=== PATIENT | female | born 1980 | race Caucasian/White ===

== ENCOUNTER 2017-07-11 10:22 | Observation (INO) | payer SELFPAY ==
[~2017-07-11] VITALS: Ht 165.1 cm; Wt 87.6 kg
[2017-07-11] VITALS (7 sets, daily range): BP systolic 100–121; BP diastolic 55–78
[~2017-07-11 10:22] MED LIST: FLAGYL500 MG OR; FLONASE NASAL50 MCG; FLUARIX QUADRIV1 INJ IM; NECON1 TA1 OR; ORTHO TRI-CY OR
[2017-07-11 11:13] LABS: HEMATOCRIT 42.7 % (37.0-47.0); HEMOGLOBIN 14.3 g/dl (12.0-16.0); IMMATURE GRANULOCYTES 0.5 % (0.0-1.0); MEAN CELL VOLUME 91.8 fL CALC (80.0-100.0); MEAN CORPUSCULAR HGB 30.8 pG CALC (26.0-32.0); MEAN CORPUSCULAR HGB CONC 33.5 g/L CALC (32.0-36.0); NEUT# 4.88 thou/uL (2.00-7.15); RED BLOOD COUNT 4.65 mill/uL (4.20-5.60); RED CELL DISTRI WIDTH 11.5 % (11.5-15.5)
[2017-07-11 11:18] LABS: URINE BILIRUBIN - DIPSTICK NEGATIVE (NEGATIVE); URINE BLOOD DIPSTICK NEGATIVE (NEGATIVE); URINE CLARITY CLEAR; URINE COLOR YELLOW; URINE GLUCOSE - DIPSTICK NEGATIVE (NEGATIVE); URINE KETONE NEGATIVE (NEGATIVE); URINE LEUK ESTERASE NEGATIVE (Negative); URINE NITRITE - DIPSTICK NEGATIVE (Negative); URINE PROTEIN - DIPSTICK NEGATIVE (NEG-TRACE); URINE UROBILINOGEN - DIPSTICK 0.2 E.U./dL (0.2)
[2017-07-11 11:25] LABS: ALBUMIN 4.7 g/dL (3.2-5.0); ALKALINE PHOSPHATASE 91 u/l (38-126); ANION GAP 15 (6-22 (CALC)); BILIRUBIN, TOTAL 1.1 mg/dL (0.0-1.4); BUN 11 mg/dL (7-17); BUN/CREATININE RATIO 11 (12-20 (CALC)); CARBON DIOXIDE 24 mmol/l (22-30); CHLORIDE 106 mmol/l (95-108); GFR > 60 ML/MIN (>=60 (CALC)); GFR FOR AFR.AMER. > 60 ML/MIN (>=60 (CALC)); GLUCOSE 87 mg/dL (65-105); POTASSIUM 3.9 mmol/l (3.5-5.1); SGOT/AST 31 u/l (14-36); SGPT/ALT 46 u/l (9-52); SODIUM 141 mmol/l (137-146); TOTAL PROTEIN 7.8 g/dL (6.3-8.2)
[2017-07-11] MEDS ORDERED: SPRINTEC 2828 DAY PO (13:46)
[2017-07-12 04:06] VITALS: BP 105/55
[2017-07-12 07:33] LABS: HEMATOCRIT 37.3 % (37.0-47.0); HEMOGLOBIN 12.5 g/dl (12.0-16.0); IMMATURE GRANULOCYTES 0.3 % (0.0-1.0); MEAN CELL VOLUME 92.1 fL CALC (80.0-100.0); MEAN CORPUSCULAR HGB 30.9 pG CALC (26.0-32.0); MEAN CORPUSCULAR HGB CONC 33.5 g/L CALC (32.0-36.0); NEUT# 7.11 thou/uL (2.00-7.15); RED BLOOD COUNT 4.05 mill/uL (4.20-5.60); RED CELL DISTRI WIDTH 11.4 % (11.5-15.5)
[2017-07-12 08:15] VITALS: BP 120/61
[2017-07-12] MEDS ORDERED: DOXYCYCL HYC100 MG PO (09:03)
[2017-07-12] MEDS ORDERED: LORTAB 7.5-3251 TAB PO (09:04)
== END 2017-07-12 10:48 | disposition home or self-care (01) | DRG 357 ==
LOC: ED 10:22 → ED-I 12:42 → ED 13:13 → MS2 13:14 → ED-I 13:56 → ED 13:56 → MS2 17:59
PROVIDERS: Emergency Medicine; ADMIT Obstetrics & Gynecology; ATTEND Obstetrics & Gynecology
PROC: 0WJJ4ZZ Inspection of Pelvic Cavity, Percutaneous Endoscopic Approach (ICD-10-PCS; principal; 2017-07-11)
DX: R10.32 Left lower quadrant pain (principal); K50.00 Crohn's disease of small intestine without complications; I86.2 Pelvic varices; N70.91 Salpingitis, unspecified
CPT/HCPCS: G0378; J2710

== ENCOUNTER 2017-09-25 09:20 | Inpatient (IN) | payer SELFPAY ==
[~2017-09-25] VITALS: Ht 165.1 cm; Wt 86.2 kg
[~2017-09-25 09:20] MED LIST changes: +DOXYCYCL HYC100 MG PO; +LORTAB 7.5-3251 TAB PO; +SPRINTEC 2828 DAY PO
[2017-09-30] VITALS (9 sets, daily range): BP systolic 107–129; BP diastolic 52–81
--- NOTE | 2017-09-30 12:40 | NUR ---
PT TO ROOM VIA STRETCHER ACCOMPANIED BY STAFF; PT ABLE TO TRANSFER SELF TO BED WITH MIN ASSIST; VS OBTAINED; PT A/O X3; PT STATUS POST VAGINAL HYSTERECTOMY; DRSG TO ABD X3 SURGICAL SITES CDI; PT STATES PAIN 2/10 AT THIS TIME, DOES NOT WANT PAIN MEDS; IVF INFUSING IN #20 RFA WITHOUT DIFFICULTY, NO REDNESS OR EDEMA AT SITE; REED DRAINING BLUE/GREEN DYE COLOR URINE TO BEDSIDE DRAIN; SCD IN PLACE; PT ORIENTED TO ROOM AND CALL SYSTEM; CALL [place] WITHIN REACH; WILL CONTINUE TO MONITOR.
--- NOTE | 2017-09-30 15:20 | NUR ---
PT RESTING WITH EYES CLOSED; AROUSED EASILY TO VERBAL STIMULI; ABD PAIN 2/10, DOES NOT WANT PAIN MED AT THIS TIME; DRSG TO ABD CDI; PT DOES NOT HAVE ANY VAGINAL BLEEDING; REED DRAINING BLUE/GREEN DYE COLOR URINE TO BEDSIDE DRAIN; TOLERATING ICE CHIP WELL; CALL [place] WITHIN REACH; WILL CONTINUE TO MONITOR.
[2017-09-30 16:32] LABS: HEMATOCRIT 36.7 % (37.0-47.0); HEMOGLOBIN 12.5 g/dl (12.0-16.0)
--- NOTE | 2017-09-30 17:23 | NUR ---
DR. RODRIGUEZ IN TO SEE PT;
--- NOTE | 2017-09-30 18:08 | NUR ---
REED REMOVED; EMPTIED 300CC OF CLEAR LIGHT BLUE/GREEN URINE; PT DENIES PAIN/DISCOMFORT; ENCOURAGE FOR PT TO CALL FOR ASSISTANCE OUT OF BED; CALL [place] WITHIN REACH; WILL CONTINUE TO MONITOR.
--- NOTE | 2017-09-30 18:50 | NUR ---
PT AMBULATORY IN HALLS WITH STAND BY ASSIST; TOLERATED WELL; CALL [place] WITHIN REACH; WILL CONTINUE TO MONITOR
--- NOTE | 2017-09-30 20:10 | NUR ---
PT RESTING IN SEMI FOWLERS POSITION LAUGHING WITH FAMILY MEMBERS AT BEDSIDE;A&O X3;PT VOICES NO COMPLAINTS OF PAIN AT THIS TIME;RESPIRATIONS EVEN AND UNLABORED ON RA;ASSESSMENT COMPLETED;HYPO ACTIVE BOWEL SOUNDS NOTED;PT TOLERATING PO FLUIDS WELL;INCISIONS X3 NOTED TO BE CDI;#20G TO RIGHT FOREARM INFUSING LR @ 100ML/HR WELL;PT ENCOURAGED TO AMBULATE THE [place] AND STATES "IM GONNA WALK SOON THE FAMILY LEAVES";I.S. AT BEDSIDE,SCD'S IN PLACE;SAFETY PRECAUTIONS REINFORCED;CALL LIGHT IN REACH;WILL CONTINUE TO MONITOR
--- NOTE | 2017-09-30 21:20 | NUR ---
PT AMBULATING HALLS WITH A STEADY GAIT
--- NOTE | 2017-10-01 | NUR ---
PT RESTING IN SUPINE POSITION WITH SPOUSE AT BEDSIDE;NO COMPLAINTS OF PAIN OR CONCERNS VOICED AT THIS TIME;RESPIRATIONS EVEN AND UNLABORED ON RA;CALL LIGHT IN REACH;WILL CONTINUE TO MONITOR
[2017-10-01 04:34] VITALS: BP 120/75
--- NOTE | 2017-10-01 04:35 | NUR ---
PT RESTING IN SUPINE POSITION WITH SPOUSE AT BEDSIDE;PT DENIES ANY PAIN OR DISCOMFORTS;RESPIRATIONS EVEN AND UNLABORED ON RA;VS OBTAINED;CALL LIGHT IN REACH;FRESH WATER PROVIDED PER REQUEST;CALL LIGHT IN REACH WILL CONTINUE TO MONITOR
--- NOTE | 2017-10-01 07:00 | NUR ---
RECEIVED BEDSIDE REPORT FROM JESSIE VILLELA. AMBULATING IN HALLWAY WITH STEADY GAIT. RESPS EVEN AND UNLABORED ON ROOM AIR. VOICES NO NEEDS AT THIS TIME. PLAN OF CARE DISCUSSED. SAFETY PRECAUTIONS REINFORCED. BED IN LOWEST POSITION WITH WHEELS LOCKED. CALL LIGHT WITHIN REACH. ENCOURAGED PT TO CALL FOR ANY NEEDS.
--- NOTE | 2017-10-01 07:50 | NUR ---
DR RODRIGUEZ IN WITH PT, NEW ORDERS RECEIVED.
[2017-10-01 08:03] VITALS: BP 117/77
[2017-10-01] MEDS ORDERED: LORTAB5 PO (08:31)
--- NOTE | 2017-10-01 09:45 | NUR ---
Discharge instructions given. Patient verbalizes understanding of same. Discharged in stable condition via Wheelchair to Home with family. All belongings sent with pt.
== END 2017-10-01 09:46 | disposition home or self-care (01) | DRG 743 ==
LOC: MS2 09-30 06:23
PROVIDERS: ADMIT Obstetrics & Gynecology; ATTEND Obstetrics & Gynecology
PROC: 0UT9FZZ Resection of Uterus, Via Natural or Artificial Opening With Percutaneous Endoscopic Assistance (ICD-10-PCS; principal; 2017-09-30)
DX: I86.2 Pelvic varices (principal); E66.9 Obesity, unspecified; N94.10 Unspecified dyspareunia; N80.0 Endometriosis of uterus; R10.30 Lower abdominal pain, unspecified; Z68.34 Body mass index [BMI] 34.0-34.9, adult
CPT/HCPCS: J2710

== ENCOUNTER 2019-11-04 11:43 | Emergency (ER) | payer SELFPAY ==
[~2019-11-04] VITALS: Ht 165.1 cm; Wt 100.0 kg
[~2019-11-04 11:43] MED LIST changes: +LORTAB5 PO
[2019-11-04 13:06] LABS: HEMOGLOBIN 13.9 g/dl (12.0-16.0); IMMATURE GRANULOCYTES 0.4 % (0.0-5.0); MEAN CELL VOLUME 92.3 fL CALC (80.0-100.0); MEAN CORPUSCULAR HGB 29.7 pG CALC (26.0-32.0); MEAN CORPUSCULAR HGB CONC 32.2 g/L CALC (32.0-36.0); NEUT# 5.67 thou/uL (2.00-7.15); RED BLOOD COUNT 4.68 mill/uL (4.20-5.60); RED CELL DISTRI WIDTH 11.8 % (11.5-15.5)
[2019-11-04 13:11] LABS: HEMATOCRIT 43.2 % (37.0-47.0)
[2019-11-04] MEDS ORDERED: STERAPRED DS10 MG PO (14:27)
[2019-11-04 14:36] VITALS: BP 130/71
== END 2019-11-04 14:46 | disposition home or self-care (01) | DRG 866 ==
LOC: ED 11:43
PROVIDERS: Family Medicine
DX: B34.9 Viral infection, unspecified (principal); J98.01 Acute bronchospasm